=== PATIENT | female | born 1940 | race Caucasian/White ===

== ENCOUNTER → 2025-01-16 09:05 | Outpatient (BNVA) | payer MEDICARE, SELFPAY | PROVIDERS: Visit Provider Nurse Practitioner Family | DX: M25.551 Pain in right hip (principal); Z13.6 Encounter for screening for cardiovascular disorders; Z85.42 Personal history of malignant neoplasm of other parts of uterus; M41.80 Other forms of scoliosis, site unspecified | CPT/HCPCS: 80053; 80061; 84443; 85025 ==

== ENCOUNTER 2025-01-17 09:53 | Outpatient (CLI) | payer MEDICARE, SELFPAY ==
--- NOTE | 2025-01-17 10:02 | XRR_ITS ---
PROCEDURE INFORMATION: Exam: XR Bilateral Hips Exam date and time: 01/17/2025 10:07 AM Age: 84 years old Clinical indication: Right hip; RT sided hip pain that radiates into lower back x one week. PT states its tender & has had swelling since yesterday. ; Additional info: M25.559 - pain in unspecified hip TECHNIQUE: Imaging protocol: Radiologic exam of the bilateral hips. Views: 2 views of hips with pelvis when performed. COMPARISON: CR XR lumbar spine 2-3V* [id number] 01/17/2025 10:07 AM FINDINGS: Bones/joints: Mild right hip joint space narrowing with subchondral sclerosis and osteophyte formation is noted. Mild left hip joint space narrowing with subchondral sclerosis and osteophyte formation is noted. No acute fracture. Osseous alignment is normal. Soft tissues: Unremarkable. XR/XR hip BI 3-4V wo/w pel [id number] IMPRESSION: 1. No acute osseous abnormality. 2. Mild right hip osteoarthritis. 3. Mild left hip osteoarthritis.
--- NOTE | 2025-01-17 10:02 | XRR_ITS ---
PROCEDURE INFORMATION: Exam: XR Thoracic Spine Exam date and time: 01/17/2025 10:07 AM Age: 84 years old Clinical indication: Other: RT hip; RT sided hip pain that radiates into lower back x one week. PT states its tender & has had swelling since yesterday. ; Additional info: M25.559 - pain in unspecified hip TECHNIQUE: Imaging protocol: Radiologic exam of the thoracic spine. Views: 3 views. COMPARISON: CR XR lumbar spine 2-3V* [id number] 01/17/2025 10:07 AM FINDINGS: Bones/joints: Levoconvex curvature centered at the thoracolumbar junction. [id number]-[id number] bony degenerative changes with multilevel endplate spurring. Moderate degenerative changes of the lower cervical spine with multilevel endplate spurring and disc space narrowing. Soft tissues: Unremarkable. XR/XR thoracic spine 3V* [id number] IMPRESSION: Degenerative changes and scoliosis as described above.
--- NOTE | 2025-01-17 10:02 | XRR_ITS ---
PROCEDURE INFORMATION: Exam: XR Lumbosacral Spine Exam date and time: 01/17/2025 10:07 AM Age: 84 years old Clinical indication: Low back pain and other: RT hip; RT sided hip pain that radiates into lower back x one week. PT states its tender & has had swelling since yesterday. ; Additional info: M25.559 - pain in unspecified hip TECHNIQUE: Imaging protocol: Radiologic exam of the lumbosacral spine. Views: 2 or 3 views. COMPARISON: CR XR hip BI 3-4V wo/[place] [id number] 01/17/2025 10:07 AM FINDINGS: Bones/joints: Levoconvex curvature centered at the thoracolumbar junction. Associated slight dextroconvex curvature of the lower lumbar region. Moderate degenerative changes of vertebral bodies with endplate spurring and disc space narrowing. Disc space narrowing probably most conspicuous at L5-S1, with associated disc vacuum phenomenon. Soft tissues: Unremarkable. XR/XR lumbar spine 2-3V* [id number] IMPRESSION: Scoliosis and chronic degenerative changes as above.
== END 2025-01-17 09:54 | disposition home or self-care (01) ==
PROVIDERS: PCP Nurse Practitioner Family; Visit Provider Nurse Practitioner Family
DX: M41.9 Scoliosis, unspecified (principal); M51.34 Other intervertebral disc degeneration, thoracic region; M51.369 Other intervertebral disc degeneration, lumbar region without mention of lumbar back pain or lower extremity pain; G95.89 Other specified diseases of spinal cord; M25.752 Osteophyte, left hip; M25.751 Osteophyte, right hip; M16.0 Bilateral primary osteoarthritis of hip
CPT/HCPCS: 72072; 72100; 73522

== ENCOUNTER 2025-01-20 16:28 | Emergency (ER) | payer MEDICARE, SELFPAY ==
[2025-01-20 16:36] VITALS: BP 150/81; PULSE 83; TEMP 36.8; O2SAT 99
--- NOTE | 2025-01-20 16:42 | ED_ITS ---
HPI - Abdominal Pain 2 General: Chief Complaint: Abdominal Pain Stated Complaint: abd and back pain, nausea, MARTINEZ Time Seen by Provider: 01/20/25 16:41 History of Present Illness: 84-year-old female who presents to the e mergency room with complaints of persistent abdominal pains been going on for the last week. She denies any dysuria urgency or frequency mildly constipated. She complained of abdominal pain and cramping has been intermittent she has had some nausea and vomiting. She had some hip pain as well when she was seen earlier in the week she had x- rays of her back and hip all of which were negative. She has been using some dicyclomine hyoscyamine with moderate relief of symptoms. No fever sweats or chills she has previously had a hysterectomy and a appendectomy. Patient denies hematochezia melena hematemesis coffee-ground emesis. Associated Symptoms: Reports GI cramping, nausea and vomiting; Denies chills, dysuria and fever(s) Related Data Previous Rx's ?Medication ?Instructions ?Recorded lactulose 10 gram/15 mL oral 30 ml PO Q2H PRN constipa tion 72 01/20/25 solution (Generlac) hours #1,080 mL Allergies Allergy/AdvReac Type Severity Reaction Status Date / Time No Known Allergies Allergy Verified 01/20/25 16:40 Review of Systems 2 Const: Denies: fever(s) or chills Card: Denies: chest pain Resp: Denies: dyspnea GI: Reports: abdominal pain, nausea, vomiting and GI cramping : Denies: dysuria, urinary frequency or urinary urgency Musc: Denies: neck pain or back pain Skin/Breast: Denies: rash PFSH ED 2 PFSH: Social History Smoking and tobacco/nicotine status: never used tobacco/nicotine Alcohol intake: never Substance/Drug Use: never Adopted: No Caregiver/support person: No Lives independently: Yes Household members: family Housing: House Marital status: Highest education level completed: 10th Grade service: No Current occupational status: retired Physical Exam 2 Const: COMMON NORMALS: no acute distress GENERAL APPEARANCE: cooperative and comfortable ORIENTATION/CONSCIOUSNESS: Yes awake, Yes oriented to person, Yes oriented to place and Yes oriented to time HENMT: COMMON NORMALS: normocephalic, atraumatic and hearing grossly normal bilaterally HEAD & SCALP: normocephalic and atraumatic Resp: COMMON NORMALS: normal respiratory effort, No retractions, No use of accessory muscles and clear to auscultation bilaterally AUSCULTATION: clear to auscultation bilaterally Cardio: COMMON NORMALS: regular rate, regular rhythm and No murmurs present (Cardio) RATE: regular rate RHYTHM: regular rhythm GI: COMMON NORMALS: Soft to palpation and No hepatosplenomegaly present A USCULTATION: Yes normoactive bowel sounds PALPATION: Yes Soft to palpation, No Tenderness to palpation present (GI), No Guarding due to palpation present (GI) and Yes No hepatosplenomegaly present Extremity: COMMON NORMALS: normal to inspection, capillary refill normal, no clubbing, cyanosis or edema, no calf tenderness and no pedal edema Neuro: SENSORIUM/ORIENTATION: Yes oriented to person, Yes oriented to place and Yes oriented to time Skin: COMMON NORMALS: no rashes or lesions noted GENERAL SKIN EXAM: no rashes or lesions noted Course 2 Vital Signs: Vital signs: Vital Signs Temperature 98.3 F 01/20/25 16:36 Pulse Rate 86 01/20/25 18:01 Blood Pressure 160/81 01/20/25 18:01 Pulse Oximetry 96 01/20/25 18:01 Oxygen Delivery Me thod Room Air 01/20/25 16:36 MDM - Abdominal Pain Medical Decision Making Patient seen initially labs and imaging ordered. Consideration for bowel obstruction cystitis pyelonephritis. Labs and imaging reviewed as found in the chart no acute findings patient does have significant amount of stool in the right hemicolon. Will discharge her home with lactulose to use as needed follow-up with her primary care doctor return if she has further problems continue to use MiraLAX long-term. Medical Records I reviewed the patient's medical records. Lab Data I reviewed the patient's lab results. 01/20/25 17:03 01/20/25 17:03 Labs/Radiology: Radiology Impressions Chest/Abdomen X-ray 01/20/25 16:59 IMPRESSION: 1. No acute chest pathology identified. 2. No acute intraabdominal or pelvic pathologic process identified. 3. Stable advanced thoracolumbar degenerative scoliosis, and other nonacute findings as described above. COMMENTS: Qualitative demineralization of bones (osteopenia) limiting evaluation for nondisplaced fractures. Laboratory Results WBC 10.30 10^3/uL (3.29-11.43) 01/20/25 17:03 RBC 4.35 10^6/uL (3.85-5.65) 01/20/25 17:03 Hgb 12.20 g/dL (11.27-16.99) 01/20/25 17:03 Hct 38.9 % (36-47) 01/20/25 17:03 MCV 89.4 fl (85-98) 01/20/25 17:03 MCH 28.0 pg (27-33) 01/20/25 17:03 MCHC 31.4 g/dL (30-55) 01/20/25 17:03 RDW 13.2 % (12.1-15.1) 01/20/25 17:03 Plt Count 248 10^3/cmm (157-399) 01/20/25 17:03 MPV 8.7 fL (7.4-10.4) 01/20/25 17:03 Neut % (Auto) 69.3 % 01/20/25 17:03 Lymph % (Auto) 20.6 % 01/20/25 17:03 [place] % (Auto) 8.4 % 01/20/25 17:03 Eos % (Auto) 1.1 % 01/20/25 17:03 Baso % (Auto) 0.3 % 01/20/25 17:03 Neut # (Auto) 7.14 10^3/uL (1.8-7.7) 01/20/25 17:03 Lymph # (Auto) 2.1 10^3/uL (0.8-4.8) 01/20/25 17:03 [place] # (Auto) 0.9 10^3/uL (0.2-0.9) 01/20/25 17:03 Eos # (Auto) 0.1 10^3/uL (0.0-0.8) 01/20/25 17:03 Baso # (Auto) 0.0 10^3/uL (0.0-0.1) 01/20/25 17:03 Nucleated RBC % (auto) 0 % 01/20/25 17:03 Nucleated RBCs # 0.0 /100WBC 01/20/25 17:03 Sodium 139 mmol/L (136-145) 01/20/25 17:03 Potassium 4.0 mmol/L (3.5-5.1) 01/20/25 17:03 Chloride 101 mmol/L (98-107) 01/20/25 17:03 Carbon Dioxide 26 mmol/L (22-29) 01/20/25 17:03 Anion Gap 16.0 (5-19) 01/20/25 17:03 BUN 20 mg/dL (8-23) 01/20/25 17:03 Creatinine 1.1 mg/dL (0.5-0.9) H 01/20/25 17:03 GFR Calculation Not Reportable 01/20/25 17:03 Glucose 100 mg/dL (65-115) 01/20/25 17:03 Calculated Osmolality 291 mOsm/kg (285-295) 01/20/25 17:03 Calcium 9.0 mg/dL (8.5-10.5) 01/20/25 17:03 Total Bilirubin 0.3 mg/dL (0.15-1.2) 01/20/25 17:03 AST 22 U/L (0-32) 01/20/25 17:03 ALT 13 U/L (0-33) 01/20/25 17:03 Alkaline Phosphatase 79 U/L (35-105) 01/20/25 17:03 Total Protein 7.0 g/dL (6.6-8.7) 01/20/25 17:03 Albumin 3.8 g/dL (3.5-5.2) 01/20/25 17:03 Globulin 3.2 g/dL (1.3-4.6) 01/20/25 17:03 Lipase 28 U/L (13-60) 01/20/25 17:03 Urine Color Yellow (Yellow) 01/20/25 16:51 Urine Appearance Clear (CLEAR) 01/20/25 16:51 Urine pH 5 (5-7) 01/20/25 16:51 Ur Specific [place] 1.005 (1.005-1.030) 01/20/25 16:51 Urine Protein Neg (Negative) 01/20/25 16:51 Urine Glucose (UA) Norm (Normal) 01/20/25 16:51 Urine Ketones Negative (Negative) 01/20/25 16:51 Urine Blood 2+ (Negative) H 01/20/25 16:51 Urine Nitrate Negative (Negative) 01/20/25 16:51 Urine Bilirubin Neg (Negative) 01/20/25 16:51 Urine Urobilinogen Neg mg/dL (Negative) 01/20/25 16:51 Ur Leukocyte Esterase 1+ (Negative) H 01/20/25 16:51 Urine RBC 0-4 /hpf (0-2) H 01/20/25 16:51 Urine WBC 5-10 /hpf (0-5) H 01/20/25 16:51 Ur Squamous Epith Cells 5-10 /hpf (0-5) H 01/20/25 16:51 Amorphous Sediment Not Reportable 01/20/25 16:51 Urine Bacteria Trace /hpf (NONE) 01/20/25 16:51 All radiology interpretation(s) finalized by discharge ED provider radiology interpretation(s): KUB shows large amount of stool in the rectosigmoid area and in the ascending colon. Discharge Plan Discharge Patient Disposition: Home Clinical Impression: Constipation Condition: Stable Prescriptions: New lactulose [Generlac] 10 gram/15 mL solution 30 ml PO Q2H PRN (Reason: constipation) 3 Days Qty: 1080 0RF Rx Instructions: until desired laxative effect Discharge Orders: Discharge ED (Routine); Ordered 01/20/25 Ordered By: Dante Maravilla Referrals: Amanda Spencer FNP-C [Primary Care Provider, [facility]] Discharge Diet: Usual diet Discharge Activity: Increase activity as tolerated Patient Instructions: Opioid Safety, Pain Management, Patient Portal & Esme Instructions Activity Restrictions/Additional Instructions: Thank you for choosing [facility] for your healthcare needs today. It is very important that you follow up as instructed or that you return to the Emergency Department should you have concerns or if your condition changes or worsens in any way. Emergency department visits are focused on emergent conditions, in some cases you may require further evaluation on an outpatient basis. You were seen in the emergency room with complaints of abdominal pain intermittently for a week. Your laboratory test did not show any clinically significant abnormalities your white count is normal urine is normal chemistries and liver functions were also normal. X-ray abdomen shows large amount of retained stool. This fits your description of the discomfort being intermittent. You are prescribed lactulose to use 1 dose every 2 hours as needed until desired effect is achieved. (Please note that included in your discharge packet is information concerning opioid safety and pain management. This information is given to all patients were discharged from the ER regardless of their discharge diagnosis or the medicines they usually take or are prescribed.) Print Language: Russian Coding Level of Care Code ED Cold Roll Operator for Sowmya Carney
--- NOTE | 2025-01-20 16:59 | XRR_ITS ---
PROCEDURE INFORMATION: Exam: XR Abdomen Exam date and time: 01/20/2025 5:01 PM Age: 84 years old Clinical indication: Abdominal pain; Additional info: Intermittent abdominal pain TECHNIQUE: Imaging protocol: Radiologic exam of the abdomen. Views: 2 Views. Upright and supine views. Total images: 597 COMPARISON: 1. CR XR hip BI 3-4V wo/[place] pel [id number] 01/17/2025 10:07 AM 2. CR XR lumbar spine 2-3V* [id number] 01/17/2025 10:07 AM 3. CR XR thoracic spine 3V* [id number] 01/17/2025 10:07 AM FINDINGS: Lungs: Right hilum, subcarinal, coarse calcified group of lymph nodes measuring in aggregate 3.8 cm maximum dimension, likely representing the chronic sequelae of prior exposure to granulomatous infection. Lungs are well-aerated without focal acute pathologic pulmonary parenchymal process. Pleural spaces: No significant pleural effusion. No pneumothorax. Heart/Mediastinum: Normal heart size. Gastrointestinal tract: Moderate burden of colonic stool without distension. No evidence of pathologic bowel distension or bowel wall thickening. Intraperitoneal space: Normal. No free air. Vasculature: Mild aortic atherosclerotic calcification. Bones/joints: Mild degenerative changes of both hips. Pubic symphysis degenerative changes (osteitis pubis). Stable advanced degenerative scoliosis. Severe chronic generalized degenerative changes of the vertebral column characterized by multilevel osteophyte formation, degenerative disc height loss, vacuum disc phenomenon, and degenerative facet arthrosis commensurate with patient's age. No intrinsic osseous abnormality identified. Qualitative demineralization of bones (osteopenia) limiting evaluation for nondisplaced fractures. Soft tissues: Soft tissues are normal as visualized, demonstrating no masses or induration. XR/XR acute abdomen series [id number] IMPRESSION: 1. No acute chest pathology identified. 2. No acute intraabdominal or pelvic pathologic process identified. 3. Stable advanced thoracolumbar degenerative scoliosis, and other nonacute findings as described above. COMMENTS: Qualitative demineralization of bones (osteopenia) limiting evaluation for nondisplaced fractures.
[2025-01-20 17:02] LABS: Glucose Urine UA Norm (Normal); Nitrate Urine Negative (Negative); Specific Gravity, Urine 1.005 (1.005-1.030); UA Manual Slide Review YES
[2025-01-20 17:03] LABS: Add Urine Microscopic? YES
[2025-01-20 17:08] LABS: Hematocrit 38.9 % (36-47); Hemoglobin 12.20 g/dL (11.27-16.99); Mean Corpuscular HGB Conc 31.4 g/dL (30-55); Mean Corpuscular Hemoglobin 28.0 pg (27-33); Mean Corpuscular Volume 89.4 fl (85-98); Nucleated Red Blood Cells % 0 %; Platelet Count 248 10^3/cmm (157-399); Red Blood Count 4.35 10^6/uL (3.85-5.65); White Blood Count 10.30 10^3/uL (3.29-11.43)
[2025-01-20 17:29] LABS: Alanine Aminotransferase 13 U/L (0-33); Albumin Level 3.8 g/dL (3.5-5.2); Alkaline Phosphatase 79 U/L (35-105); Anion Gap 16.0 (5-19); Aspartate Amino Transferase 22 U/L (0-32); Blood Urea Nitrogen 20 mg/dL (8-23); Calcium 9.0 mg/dL (8.5-10.5); Carbon Dioxide 26 mmol/L (22-29); Chloride 101 mmol/L (98-107); Creatinine Clr Calc Pharmacy 33.3731; Globulin 3.2 g/dL (1.3-4.6); Glucose 100 mg/dL (65-115); Lipase 28 U/L (13-60); Osmolality Calculated 291 mOsm/kg (285-295); Potassium 4.0 mmol/L (3.5-5.1); Sodium 139 mmol/L (136-145); Total Protein 7.0 g/dL (6.6-8.7)
[2025-01-20 18:01] VITALS: BP 160/81; PULSE 86; O2SAT 96
== END 2025-01-20 18:01 | disposition home or self-care (01) ==
PROVIDERS: Emergency Provider Family Medicine; PCP Nurse Practitioner Family
DX: K59.00 Constipation, unspecified (principal)
CPT/HCPCS: 74022; 80053; 81001; 83690; 85025; 87086; 99284

== ENCOUNTER 2025-01-24 10:20 | Emergency (ER) | payer MEDICARE, SELFPAY ==
[2025-01-24] VITALS (12 sets, daily range): BP systolic 111–187; BP diastolic 70–103; PULSE 77–98; RESP 15–33; TEMP 36.9; O2SAT 93–100
--- NOTE | 2025-01-24 11:50 | W.ED.ABDPA2 ---
HPI - Abdominal Pain General: Chief Complaint: Abdominal Pain Stated Complaint: CONSTIPATION Time Seen by Provider: 01/24/25 11:40 History of Present Illness: 84-year-old female presents emergency room planing of abdominal pain. She was seen a few days ago she had significant constipation despite lactulose and several enemas she states she still has not having any relief now has been very nauseous even vomited once she denies any hematochezia or melena. No fever sweats or chills. No hematemesis Related Data Home Medications ?Medication ?Instructions ?Recorded ?Confirmed ascorbic acid (vitamin C) 1,000 mg 1,000 mg PO DAILY 01/24/25 01/24/25 tablet (Vitamin C) biotin 800 mcg tablet 800 mcg PO DAILY 01/24/25 01/24/25 cholecalciferol (vitamin D3) 50 50 mcg PO DAILY 01/24/25 01/24/25 mcg (2,000 unit) tablet (Vitamin D3) ibuprofen 200 mg tablet (Advil) 600 mg PO Q6H PRN Fever Or Pain 01/24/25 01/24/25 lactulose 10 gram/15 mL oral 30 ml PO Q2H 01/24/25 01/24/25 solution mecobalamin (vitamin B12) 1,000 1,000 mcg PO DAILY 01/24/25 01/24/25 mcg chewable tablet (B12 Active) [id number]-mhdzvedpr-jrenxhtd 3.5 1 drp ophthalmic (eye) TID 01/24/25 01/24/25 mg/mL-10,000 unit/mL-0.1% eye drops psyllium husk (with sugar) 3.4 1 tsp PO DAILY 01/24/25 01/24/25 gram/12 gram oral powder (Fiber (psyllium husk-sugar)) vitamins A,C,U-zimy-fzpjbn 4,296 1 cap PO BID 01/24/25 01/24/25 mcg-226 mg-90 mg capsule (PreserVision AREDS) Allergies Allergy/AdvReac Type Severity Reaction Status Date / Time No Known Allergies Allergy Verified 01/20/25 16:40 [facility] ED PFSH: Social History Smoking and tobacco/nicotine status: never used tobacco/nicotine Alcohol intake: never Substance/Drug Use: never Adopted: No Caregiver/support person: No Lives independently: Yes Household members: family Housing: House Marital status: Highest education level completed: 10th Grade service: No Current occupational status: retired Procedures Procedural Sedation Indication: other ASA Class: I Preparation: front desk monitor applied, pulse oximeter, supplemental O2 applied, suction/airway equipment at bedside and IV secured IV Etomidate dose (mg): 5 Patient Tolerated Procedure: well Complications: none Additional Comments: Conscious sedation started at 1200, completed at 1220 Course Vital Signs: Vital signs: Vital Signs Temperature 98.4 F 01/24/25 10:58 Pulse Rate 77 01/24/25 16:10 Respiratory Rate 16 01/24/25 15:30 Blood Pressure 111/87 01/24/25 16:10 Pulse Oximetry 98 01/24/25 16:10 Oxygen Delivery Me thod Room Air 01/24/25 10:58 MDM - Abdominal Pain Medical Decision Making Urinary retention. After Quinonez placed drained approximately 300 mL patient had significant leaf of her discomfort. CT does not show any ureteral obstruction but does show some hydronephrosis. She states she feels much better there is no sign of infection at this time. Will discharge home with Quinonez in place have her follow-up with urology. Patient was adamant she is still constipated we did do conscious sedation and did rectal exam there is no stool in the rectal vault. Subsequent CT showed urinary retention patient unable to voided 300 mL in bladder. Quinonez placed patient had relief of symptoms states she feels much better now will discharge home and set up for outpatient follow-up with urology. Medical Records I reviewed the patient's medical records. Lab Data I reviewed the patient's lab results. 01/24/25 11:35 01/24/25 11:35 Labs/Radiology: Radiology Impressions Abdomen/Pelvis CT 01/24/25 12:57 IMPRESSION: 1. Moderate to severe bilateral hydronephrosis, greatest on the LEFT. 2. Uroepithelial enhancement in the LEFT renal pelvis and following the tortuous LEFT ureter. No renal or ureteral calcifications are identified. Source of the obstruction is not evident. Consider uroepithelial lesion, stricture or mass. 3. There is soft tissue edema and fluid surrounding the LEFT kidney which may be secondary to the hydronephrosis. 4. No pelvic mass identified. 5. No GI tract obstruction. Laboratory Results WBC 11.12 10^3/uL (3.29-11.43) 01/24/25 11:35 RBC 4.60 10^6/uL (3.85-5.65) 01/24/25 11:35 Hgb 13.20 g/dL (11.27-16.99) 01/24/25 11:35 Hct 42.4 % (36-47) 01/24/25 11:35 MCV 92.2 fl (85-98) 01/24/25 11:35 MCH 28.7 pg (27-33) 01/24/25 11:35 MCHC 31.1 g/dL (30-55) 01/24/25 11:35 RDW 13.2 % (12.1-15.1) 01/24/25 11:35 Plt Count 323 10^3/cmm (157-399) 01/24/25 11:35 MPV 9.1 fL (7.4-10.4) 01/24/25 11:35 Neut % (Auto) 67.7 % 01/24/25 11:35 Lymph % (Auto) 22.9 % 01/24/25 11:35 [place] % (Auto) 8.0 % 01/24/25 11:35 Eos % (Auto) 0.6 % 01/24/25 11:35 Baso % (Auto) 0.5 % 01/24/25 11:35 Neut # (Auto) 7.52 10^3/uL (1.8-7.7) 01/24/25 11:35 Lymph # (Auto) 2.6 10^3/uL (0.8-4.8) 01/24/25 11:35 [place] # (Auto) 0.9 10^3/uL (0.2-0.9) 01/24/25 11:35 Eos # (Auto) 0.1 10^3/uL (0.0-0.8) 01/24/25 11:35 Baso # (Auto) 0.1 10^3/uL (0.0-0.1) 01/24/25 11:35 Nucleated RBC % (auto) 0 % 01/24/25 11:35 Nucleated RBCs # 0.0 /100WBC 01/24/25 11:35 Sodium 142 mmol/L (136-145) 01/24/25 11:35 Potassium 3.2 mmol/L (3.5-5.1) L 01/24/25 11:35 Chloride 100 mmol/L (98-107) 01/24/25 11:35 Carbon Dioxide 26 mmol/L (22-29) 01/24/25 11:35 Anion Gap 19.2 (5-19) H 01/24/25 11:35 BUN 15 mg/dL (8-23) 01/24/25 11:35 Creatinine 0.9 mg/dL (0.5-0.9) 01/24/25 11:35 GFR Calculation Not Reportable 01/24/25 11:35 Glucose 102 mg/dL (65-115) 01/24/25 11:35 Calculated Osmolality 295 mOsm/kg (285-295) 01/24/25 11:35 Calcium 9.4 mg/dL (8.5-10.5) 01/24/25 11:35 Total Bilirubin 0.4 mg/dL (0.15-1.2) 01/24/25 11:35 AST 18 U/L (0-32) 01/24/25 11:35 ALT 12 U/L (0-33) 01/24/25 11:35 Alkaline Phosphatase 85 U/L (35-105) 01/24/25 11:35 Total Protein 7.6 g/dL (6.6-8.7) 01/24/25 11:35 Albumin 4.0 g/dL (3.5-5.2) 01/24/25 11:35 Globulin 3.6 g/dL (1.3-4.6) 01/24/25 11:35 Urine Color Yellow (Yellow) 01/24/25 14:42 Urine Appearance Clear (CLEAR) 01/24/25 14:42 Urine pH 5.5 (5-7) 01/24/25 14:42 Ur Specific Honor 1.022 (1.005-1.030) 01/24/25 14:42 Urine Protein Trace (Negative) A 01/24/25 14:42 Urine Glucose (UA) Negative (Normal) 01/24/25 14:42 Urine Ketones Trace (Negative) 01/24/25 14:42 Urine Blood Trace (Negative) A 01/24/25 14:42 Urine Nitrate Negative (Negative) 01/24/25 14:42 Urine Bilirubin Negative (Negative) 01/24/25 14:42 Urine Urobilinogen 0.2 mg/dL (Negative) 01/24/25 14:42 Ur Leukocyte Esterase Negative (Negative) 01/24/25 14:42 Urine RBC 0-2 /hpf (0-2) 01/24/25 14:42 Urine WBC 0-5 /hpf (0-5) 01/24/25 14:42 Ur Squamous Epith Cells 0-5 /hpf (0-5) 01/24/25 14:42 Amorphous Sediment Not Reportable 01/24/25 14:42 Urine Bacteria None seen /hpf (NONE) 01/24/25 14:42 Hyaline Casts 4.52 /lpf 01/24/25 14:42 All radiology interpretation(s) finalized by discharge Discharge Plan Discharge Patient Disposition: Home Clinical Impression: Acute urinary retention Condition: Stable Prescriptions: No Action ascorbic acid (vitamin C) [Vitamin C] 1,000 mg Tablet 1,000 mg PO DAILY biotin 800 mcg Tablet 800 mcg PO DAILY neomycin-polymyxin B-dexameth 3.5mg/mL-10,000 unit/mL-0.1 % drops,suspension 1 drp ophthalmic (eye) TID ibuprofen [Advil] 200 mg Tablet 600 mg PO Q6H PRN (Reason: Fever Or Pain) lactulose 10 gram/15 mL solution 30 ml PO Q2H PreserVision AREDS 4,296 mcg-226 mg-90 mg Capsule 1 cap PO BID cholecalciferol (vitamin D3) [Vitamin D3] 50 mcg (2,000 unit) Tablet 50 mcg PO DAILY Fiber (psyllium husk-sugar) 3.4 gram/12 gram Powder 1 tsp PO DAILY mecobalamin (vitamin B12) [B12 Active] 1,000 mcg Tablet,Chewable 1,000 mcg PO DAILY Discharge Orders: Discharge ED (Routine); Ordered 01/24/25 Ordered By: Dante Maravilla Referrals: Amanda Spencer FNP-C [Primary Care Provider, Family Practice] Discharge Diet: Usual diet Discharge Activity: Resume usual activity Patient Instructions: Opioid Safety, Pain Management, Patient Portal & Esme Instructions Activity Restrictions/Additional Instructions: Thank you for choosing [facility] for your healthcare needs today. It is very important that you follow up as instructed or that you return to the Emergency Department should you have concerns or if your condition changes or worsens in any way. Emergency department visits are focused on emergent conditions, in some cases you may require further evaluation on an outpatient basis. You were seen in the emergency room with complaints of pelvic pain and back pain. There is no sign of infection in your urine however you were retaining urine. Placement of a Quinonez relieve the discomfort. Will discharge you home with a Quinonez in place and have you follow-up with urology. [employer] manager will make arrangements for your follow-up. (Please note that included in your discharge packet is information concerning opioid safety and pain management. This information is given to all patients were discharged from the ER regardless of their discharge diagnosis or the medicines they usually take or are prescribed.) Print Language: Georgian Coding Level of Care Code ED Finance Clerk for Sowmya Carney
[2025-01-24 11:53] LABS: Hematocrit 42.4 % (36-47); Hemoglobin 13.20 g/dL (11.27-16.99); Mean Corpuscular HGB Conc 31.1 g/dL (30-55); Mean Corpuscular Hemoglobin 28.7 pg (27-33); Mean Corpuscular Volume 92.2 fl (85-98); Nucleated Red Blood Cells % 0 %; Platelet Count 323 10^3/cmm (157-399); Red Blood Count 4.60 10^6/uL (3.85-5.65); White Blood Count 11.12 10^3/uL (3.29-11.43)
--- NOTE | 2025-01-24 12:09 | PC.NURSE ---
Conscious Sedation set up @1200: adult ambu bag, non-rebreather, oxygen, suction available at bedside; patent 20G IV in R A/C, cardiac/hemodynamic monitoring q5; consent signed and in chart.
[2025-01-24 12:11] LABS: Alanine Aminotransferase 12 U/L (0-33); Albumin Level 4.0 g/dL (3.5-5.2); Alkaline Phosphatase 85 U/L (35-105); Anion Gap 19.2 (5-19); Aspartate Amino Transferase 18 U/L (0-32); Blood Urea Nitrogen 15 mg/dL (8-23); Calcium 9.4 mg/dL (8.5-10.5); Carbon Dioxide 26 mmol/L (22-29); Chloride 100 mmol/L (98-107); Creatinine Clr Calc Pharmacy 35.7174; Globulin 3.6 g/dL (1.3-4.6); Glucose 102 mg/dL (65-115); Osmolality Calculated 295 mOsm/kg (285-295); Potassium 3.2 mmol/L (3.5-5.1); Sodium 142 mmol/L (136-145); Total Protein 7.6 g/dL (6.6-8.7)
[2025-01-24] MEDS: etomidate 2 mg/mL INJ SDV 10 mL 5 MG IVP (12:54)
--- NOTE | 2025-01-24 12:54 | PC.NURSE ---
see MAR for conscious sedation medications, pt had 2L NC applied prior to procedure. this nurse, ED physician, respiratory therapist present in room.
--- NOTE | 2025-01-24 12:57 | CT_ITS ---
WS: [id number] CT ABDOMEN AND PELVIS WITH CONTRAST HISTORY: abd pain, history of non-Hodgkin's lymphoma. Prior appendectomy and hysterectomy. TECHNIQUE: Imaging performed of the abdomen and pelvis with IV contrast. Single phase imaging of the abdomen. Coronal and sagittal reformats are submitted. All CT scans at [facility] use at least one of these dose optimization techniques: automated exposure control; mA and/or kV adjustment per patient size (includes targeted exams where dose is matched to clinical indication); or iterative reconstruction. IV CONTRAST: Omnipaque 350; 100 mL IV. Oral contrast: No DLP: 320.98 mGy.cm COMPARISON: None available. Lower thorax: Lung bases are clear. Mild cardiomegaly. Moderate size hiatal hernia. Liver/biliary system: Normal size liver. Mild central biliary dilatation. Common bile duct is 7 mm. Gallbladder: Gallbladder is poorly visualized. Pancreas: Normal size pancreas. Pancreatic duct is visualized but not dilated. Spleen: Normal size spleen. No mass or infarct. Adrenal glands: Normal. Right kidney: Marked hydronephrosis RIGHT kidney. No excretion into the kidney. The proximal ureter is dilated. Ureter is not well visualized distally. Left kidney: Severe hydronephrosis. Dilated renal pelvis and calyces and proximal ureter. There is ureteral wall enhancement throughout a large portion of the ureter. Mid to distal ureter does return to more normal size. Cause of the obstruction is not apparent. There is increased soft tissue surrounding the kidney and the renal pelvis. Aorta: Mild atherosclerosis with no aneurysm. Lymphadenopathy: None. Free fluid: No free fluid in the pelvis. There is fluid surrounding the LEFT kidney in the renal pelvis. GI tract: No GI tract obstruction. Abdominal wall: Unremarkable abdominal wall. No hernia. Pelvis: Urinary bladder is distended. No intraluminal mass identified. Bones: Severe osteopenia and scoliosis of the lower thoracic and lumbar spines. Mild anterior wedging of L2. CT/CT abdomen pelvis w con* [id number] IMPRESSION: 1. Moderate to severe bilateral hydronephrosis, greatest on the LEFT. 2. Uroepithelial enhancement in the LEFT renal pelvis and following the tortuo us LEFT ureter. No renal or ureteral calcifications are identified. Source of t he obstruction is not evident. Consider uroepithelial lesion, stricture or mass . 3. There is soft tissue edema and fluid surrounding the LEFT kidney which may be secondary to the hydronephrosis. 4. No pelvic mass identified. 5. No GI tract obstruction.
[2025-01-24] MEDS: iohexol 350 mg/mL 500 mL Btl (per mL) IV (13:13)
[2025-01-24] MEDS: ondansetron 2 mg/ML SDV 2 mL 4 MG IVP (13:25)
[2025-01-24] MEDS: morphine 4 mg/mL SDV 1 mL IVP (13:27)
[2025-01-24 15:21] LABS: Glucose Urine UA Negative (Normal); Nitrate Urine Negative (Negative); Specific Gravity, Urine 1.022 (1.005-1.030)
[2025-01-24 15:26] LABS: Add Urine Microscopic? YES
--- NOTE | 2025-01-24 16:21 | PC.NURSE ---
total of 300mL output when le placed
--- NOTE | 2025-01-25 08:06 | DCPLANNER ---
faxed referral packet to [facility]. images pushed.
== END 2025-01-24 16:34 | disposition home or self-care (01) ==
PROVIDERS: Emergency Provider Family Medicine; PCP Nurse Practitioner Family
DX: R33.8 Other retention of urine (principal)
CPT/HCPCS: 36415; 51702; 74177; 80053; 81001; 85025; 96374; 96375; 99152; 99285; J2270; J2405; J3490

== ENCOUNTER → 2025-03-04 14:08 | Outpatient (BNVA) | payer MEDICARE, SELFPAY | PROVIDERS: PCP Clinical Nurse Specialist Adult Health; Visit Provider Clinical Nurse Specialist Adult Health | DX: K21.9 Gastro-esophageal reflux disease without esophagitis (principal) | CPT/HCPCS: 80048; 83735; 85025 ==